=== PATIENT | male | born 2000 | race Caucasian/White ===

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

== ENCOUNTER → 2021-05-26 | Outpatient (CLI) | payer BC, OTHER ==
[2021-05-26 16:14] LABS: BASOPHILS ABSOLUTE AUTO 0.03 K/mm3 (0.00-0.23); BASOPHILS PERCENT AUTO 0 % (0-2); EOSINOPHILS PERCENT AUTO 3 % (0-6); Hematocrit 41.5 % (37.0-53.0); Hemoglobin 14.4 g/dL (13.5-17.5); IMMATURE GRAN ABSOLUTE AUTO 0.02 K/mm3 (0.00-0.10); IMMATURE GRAN PERCENT AUTO 0 % (0-1); LYMPHOCYTES ABSOLUTE AUTO 1.82 K/mm3 (0.84-5.20); LYMPHOCYTES PERCENT AUTO 25 % (21-46); MONOCYTES ABSOLUTE AUTO 0.52 K/mm3 (0.16-1.47); MONOCYTES PERCENT AUTO 7 % (4-13); Mean Corpuscular HGB Conc 34.7 g/dL (31.5-36.5); Mean Corpuscular Volume 87 fL (80-100); Mean Platelet Volume 9.4 fL (9.1-12.4); NEUTROPHILS ABSOLUTE AUTO 4.61 K/mm3 (1.96-9.15); NEUTROPHILS PERCENT AUTO 64 % (41-73); Platelet Count 343 K/mm3 (150-400); RDW Coefficient Variation 13.2 % (11.7-14.2); RDW Standard Deviation 41.1 fL (35.1-46.3)
[2021-05-26 16:25] LABS: Alanine Aminotransfer (ALT/SGP 60 U/L (12-78); Albumin, Blood 3.9 g/dL (3.4-5.0); Alk Phos 106 U/L (40-126); Anion Gap 9 mmol/L (6-16); Aspartate Aminotrans (AST/SGOT 25 U/L (12-37); Bilirubin, Total 0.8 mg/dL (0.1-1.0); Blood Urea Nitrogen 8 mg/dL (8-24); Bun/Creatinine Ratio 8.2 (12.0-20.0); CO2, Blood 29 mmol/L (21-32); Calcium, Blood 9.7 mg/dL (8.5-10.1); Chloride, Blood 104 mmol/L (98-108); Creatinine, Blood 0.98 mg/dL (0.60-1.20); Globulin, Blood 3.9 g/dL (2.2-4.0); Glomerular Filtration Rate >60 (60-); Glucose, Blood 83 mg/dL (70-99); Potassium, Blood 3.8 mmol/L (3.5-5.5); Sodium, Blood 142 mmol/L (136-145); Total Protein, Blood 7.8 g/dL (6.4-8.2)
== END | disposition home or self-care (01) ==
LOC: LAB SHORT 16:08
PROVIDERS: Physician Assistant Surgical
DX: R07.9 Chest pain, unspecified (principal)
CPT/HCPCS: 80053; 85025

== ENCOUNTER → 2021-09-19 | Outpatient (CLI) | payer BC, OTHER ==
[2021-09-19 17:08] LABS: BASOPHILS ABSOLUTE AUTO 0.04 K/mm3 (0.00-0.23); BASOPHILS PERCENT AUTO 1 % (0-2); EOSINOPHILS ABSOLUTE AUTO 0.29 K/mm3 (0.00-0.68); EOSINOPHILS PERCENT AUTO 3 % (0-6); Hematocrit 42.4 % (37.0-53.0); Hemoglobin 14.5 g/dL (13.5-17.5); IMMATURE GRAN ABSOLUTE AUTO 0.03 K/mm3 (0.00-0.10); IMMATURE GRAN PERCENT AUTO 0 % (0-1); LYMPHOCYTES ABSOLUTE AUTO 1.62 K/mm3 (0.84-5.20); LYMPHOCYTES PERCENT AUTO 19 % (21-46); MONOCYTES ABSOLUTE AUTO 0.51 K/mm3 (0.16-1.47); MONOCYTES PERCENT AUTO 6 % (4-13); Mean Corpuscular HGB 29.7 pg (26.0-34.0); Mean Corpuscular HGB Conc 34.2 g/dL (31.5-36.5); Mean Corpuscular Volume 87 fL (80-100); Mean Platelet Volume 9.6 fL (9.1-12.4); NEUTROPHILS ABSOLUTE AUTO 5.97 K/mm3 (1.96-9.15); NEUTROPHILS PERCENT AUTO 71 % (41-73); Platelet Count 378 K/mm3 (150-400); RDW Coefficient Variation 12.4 % (11.7-14.2); RDW Standard Deviation 39.1 fL (35.1-46.3); Red Blood Cell Count 4.89 M/mm3 (4.30-5.90); White Blood Cell Count 8.46 K/mm3 (4.00-11.30)
== END ==
LOC: LAB SHORT 17:03
PROVIDERS: Physician Assistant
DX: R59.0 Localized enlarged lymph nodes (principal)
CPT/HCPCS: 85025

== ENCOUNTER 2021-10-26 12:11 | Day surgery (SDC) | payer BC, OTHER ==
[~2021-10-26] VITALS: Ht 175.3 cm; Wt 95.9 kg
--- NOTE | 2021-10-26 13:34 | NUR ---
10/26/21 1334 [address] 50 MLS NORMAL SALINE MIXED WITH EPI 0.25 ML PER ORDER TO MAKE EPI 1:200,000 FOR INJECTION AT OPSITE BY DR GAMA FOR HOMEOSTASIS. 2 MLS INJECTED.
--- NOTE | 2021-10-26 15:21 | NUR ---
10/26/21 1521 MILENA GUZMAN TEGREDERM WITH 2X2 GAUZE APPLIED TO INCISION PER DR BELLO VERBAL ORDERS. 3 EXTRA SENT HOME FOR SHOWERING TO KEEP WOUND DRY FOR 3 DAYS.
== END 2021-10-26 15:18 | disposition home or self-care (01) ==
LOC: ORSCSDS 12:11
PROVIDERS: Otolaryngology
PROC: 07B10ZX Excision of Right Neck Lymphatic, Open Approach, Diagnostic (ICD-10-PCS; principal; 2021-10-26 13:30)
DX: C81.01 Nodular lymphocyte predominant Hodgkin lymphoma, lymph nodes of head, face, and neck (principal); J45.909 Unspecified asthma, uncomplicated; F17.290 Nicotine dependence, other tobacco product, uncomplicated
CPT/HCPCS: 87071; 87075; 87205; 88305; 88341; 88342; A9270; J0171; J1100; J2250; J2405; J2704; J3010

== ENCOUNTER 2021-11-09 06:13 | Day surgery (SDC) | payer BC, OTHER ==
[~2021-11-09] VITALS: Ht 177.8 cm; Wt 96.0 kg
[~2021-11-09 06:13] MED LIST changes: +PROM25 PO
[2021-11-09] MEDS ORDERED: TRAM50 PO (06:34)
--- NOTE | 2021-11-09 06:50 | NUR ---
Ambulatory in Day Surgery. Surgical site prepped with 2% Chlorhexidine cloth wipe. History, Chart, Medications and Allergies reviewed before start of procedure. Patient reports completing Chlorhexadine shower X2 prior to admission to hospital. Patient States Post-Procedure ride home has been arranged. Pre-Op teaching done. Pt verbalizes understanding. Patient confirms NPO status and agrees with scheduled surgery. Lungs clear T/O to Auscultation. History, Chart, Medications and Allergies reviewed before start of procedure.
--- NOTE | 2021-11-09 10:13 | NUR ---
Patient up to Ambulate independently. Gait steady. Discharge instructions reviewed with patient AND PT'S MOTHER. Patient verbalizes understanding. Copy given to patient to take home. Discharged via wheelchair to private car for ride home.
== END 2021-11-09 23:21 | disposition home or self-care (01) ==
LOC: ORSCMMR 06:13 → ORD 07:30 → ORSCMMR 07:30
PROVIDERS: Surgery
PROC: 05HM33Z Insertion of Infusion Device into Right Internal Jugular Vein, Percutaneous Approach (ICD-10-PCS; principal; 2021-11-09 07:30)
PROC: B543ZZA Ultrasonography of Right Jugular Veins, Guidance (ICD-10-PCS; principal; 2021-11-09 07:30)
DX: C81.18 Nodular sclerosis Hodgkin lymphoma, lymph nodes of multiple sites (principal); F17.210 Nicotine dependence, cigarettes, uncomplicated; J45.909 Unspecified asthma, uncomplicated; K21.9 Gastro-esophageal reflux disease without esophagitis; Z79.899 Other long term (current) drug therapy
CPT/HCPCS: 77001; C1788; J0690; J1100; J1642; J1885; J2250; J2370; J2405; J2704; J3010; J7120

== ENCOUNTER 2021-11-26 08:14 | Inpatient (IN) | payer BC, OTHER ==
[~2021-11-26] VITALS: Ht 177.8 cm; Wt 93.3 kg
[2021-11-26 09:07] LABS: Hematocrit 38.2 % (37.0-53.0); Hemoglobin 12.7 g/dL (13.5-17.5); Mean Corpuscular HGB 28.5 pg (26.0-34.0); Mean Corpuscular HGB Conc 33.2 g/dL (31.5-36.5); Mean Corpuscular Volume 86 fL (80-100); Mean Platelet Volume 9.3 fL (9.1-12.4); Platelet Count 463 K/mm3 (150-400); RDW Coefficient Variation 11.9 % (11.7-14.2); RDW Standard Deviation 37.1 fL (35.1-46.3); Red Blood Cell Count 4.45 M/mm3 (4.30-5.90)
[2021-11-26] MEDS ORDERED: VINBLASTINE (09:11)
[2021-11-26] MEDS ORDERED: DOXORUBICIN2 MG/1 ML (09:11)
[2021-11-26] MEDS ORDERED: METO10SY (09:12)
[2021-11-26] MEDS ORDERED: DACARBAZINE (09:12)
[2021-11-26] MEDS ORDERED: ADCETRIS50 MG (09:12)
[2021-11-26] MEDS ORDERED: NEULASTA6 MG/0.6 M (09:12)
[2021-11-26 09:31] LABS: Alanine Aminotransfer (ALT/SGP 122 U/L (12-78); Albumin, Blood 3.2 g/dL (3.4-5.0); Albumin/Globulin Ratio 0.7 (0.8-1.8); Alk Phos 145 U/L (50-136); Anion Gap 6 mmol/L (6-16); Aspartate Aminotrans (AST/SGOT 27 U/L (12-37); BAND PERCENT MAN 21 % (0-8); BASOPHILS ABSOLUTE MAN 0.21 K/mm3 (0.00-0.23); BASOPHILS PERCENT MAN 1 % (0-2); Bilirubin, Total 0.1 mg/dL (0.1-1.0); Blood Urea Nitrogen 13 mg/dL (8-24); Bun/Creatinine Ratio 13.2 (12.0-20.0); CO2, Blood 25 mmol/L (21-32); Chloride, Blood 106 mmol/L (98-108); Creatinine, Blood 0.99 mg/dL (0.60-1.20); EOSINOPHILS ABSOLUTE MAN 0.21 K/mm3 (0.00-0.68); EOSINOPHILS PERCENT MAN 1 % (0-6); Globulin, Blood 4.5 g/dL (2.2-4.0); Glomerular Filtration Rate >60 (60-); Glucose, Blood 109 mg/dL (70-99); LYMPHOCYTES ABSOLUTE MAN 1.73 K/mm3 (0.84-5.20); LYMPHOCYTES PERCENT MAN 8 % (21-46); METAMYELOCYTE ABSOLUTE MAN 1.51 K/mm3 (0.00-0.00); METAMYELOCYTE PERCENT MAN 7 % (0-0); MONOCYTES ABSOLUTE MAN 2.38 K/mm3 (0.16-1.47); MONOCYTES PERCENT MAN 11 % (4-13); MYELOCYTE ABSOLUTE MAN 0.65 K/mm3 (0.00-0.00); MYELOCYTE PERCENT MAN 3 % (0-0); Magnesium, Blood 2.1 mg/dL (1.6-2.4); NEUTROPHILS ABSOLUTE MAN 14.97 K/mm3 (1.96-9.15); Potassium, Blood 3.9 mmol/L (3.5-5.5); SEG NEUTROPHILS PERCENT MAN 48 % (41-73); Sodium, Blood 137 mmol/L (136-145); TOTAL CELLS COUNTED 100; Total Protein, Blood 7.7 g/dL (6.4-8.2)
[2021-11-26] MEDS ORDERED: OXYC5 PO (09:35)
[2021-11-26] MEDS ORDERED: OMEP20ER PO (09:35)
[2021-11-26] MEDS ORDERED: REGLAN1011 PO (09:36)
[2021-11-26] MEDS ORDERED: TRAM50 PO (09:36)
[2021-11-26] MEDS ORDERED: HYDROCODONE-AC1 EA17 PO (09:36)
[2021-11-26] MEDS ORDERED: ALLO300 PO (09:36)
[2021-11-26] MEDS ORDERED: Phenergan25 M1 PO (09:37)
[2021-11-26 13:39] LABS: Automated CSF WBC Count 0.067 K/mm3 (0-5); WBC Count, CSF 67 /mm3 (0-5)
[2021-11-26 13:42] LABS: Automated CSF WBC Count 0.063 K/mm3 (0-5); WBC Count, CSF 63 /mm3 (0-5)
[2021-11-26 14:29] LABS: Glucose, CSF 64 mg/dL (40-70)
[2021-11-26 15:27] LABS: Color, CSF No Color (No Color); RBC Count, CSF 3 /mm3 (0-0)
[2021-11-26 15:33] LABS: Appearance, CSF Clear (Clear)
[2021-11-26 15:42] LABS: Cryptococcus Neoformans/Gattii Not Detected (NOT DETECT); Enterovirus Not Detected (NOT DETECT); Escherichia Coli K1 Not Detected (NOT DETECT); Haemophilus Influenza Not Detected (NOT DETECT); Herpes Simplex Virus 1 Not Detected (NOT DETECT); Herpes Simplex Virus 2 Not Detected (NOT DETECT); Human Herpesvirus 6 Not Detected (NOT DETECT); Human Parechovirus Not Detected (NOT DETECT); Listeria Monocytogenes Not Detected (NOT DETECT); Neisseria Meningitidis Not Detected (NOT DETECT); Streptococcus Agalactiae Not Detected (NOT DETECT); Streptococcus Pneumoniae Not Detected (NOT DETECT); Varicella Zoster Virus Not Detected (NOT DETECT)
[2021-11-26 16:11] LABS: RBC Count, CSF 70 /mm3 (0-0)
[2021-11-26 16:12] LABS: Appearance, CSF Clear (Clear); Color, CSF No Color (No Color)
[2021-11-26 18:07] LABS: Eosinophils, CSF 1 % (0-0); Lymphocytes, CSF 59 % (40-80); Monocytes, CSF 1 % (15-45); Neutrophils, CSF 39 % (0-6)
[2021-11-26 18:09] LABS: Eosinophils, CSF 2 % (0-0); Lymphocytes, CSF 71 % (40-80); Monocytes, CSF 2 % (15-45); Neutrophils, CSF 25 % (0-6)
--- NOTE | 2021-11-26 18:48 | NUR ---
DAY SHIFT SUMMARY PT ARRIVED TO MED FLOOR JUST BEFORE 1800 FROM ED. ADMITTED WITH SEVERE HEADACHE, POSITIVE FOR MENENGITIS. ORIENTED TO ROOM/SURROUNDING AREA/CALL LIGHT. CALL LIGHT WITHIN REACH AND ABLE TO CALL APPROPRIATELY. GIRLFRIEND AND MOM AT BEDSIDE. INITIAL ADMIT ASSESSMENT COMPLETED, HOME MED LIST COMPLETED.
--- NOTE | 2021-11-27 03:03 | NUR ---
NAUMKEAG OPERATOR SUMMARY INTERMITTENT PAIN OF HEAD AND BACK. RECEIVED DILAUDID WHICH WAS EFFECTIVE BUT DID NOT LAST LONG. SEE MAR FOR DETAILS. IV ZOVIRAX AMINISTERED. ORIENTED X 4. CALL LIGHT IN REACH. CURRENTLY RESTING QUIETLY. WILL CONTINUE TO MONITOR
[2021-11-27 05:33] LABS: Hemoglobin 11.7 g/dL (13.5-17.5); Mean Corpuscular HGB 28.6 pg (26.0-34.0); Mean Corpuscular HGB Conc 33.4 g/dL (31.5-36.5); Mean Corpuscular Volume 86 fL (80-100); Mean Platelet Volume 9.4 fL (9.1-12.4); Platelet Count 419 K/mm3 (150-400); RDW Standard Deviation 36.6 fL (35.1-46.3); Red Blood Cell Count 4.09 M/mm3 (4.30-5.90); White Blood Cell Count 18.53 K/mm3 (4.00-11.30)
[2021-11-27 05:55] LABS: Alanine Aminotransfer (ALT/SGP 86 U/L (12-78); Albumin, Blood 2.8 g/dL (3.4-5.0); Albumin/Globulin Ratio 0.7 (0.8-1.8); Alk Phos 127 U/L (50-136); Anion Gap 5 mmol/L (6-16); Aspartate Aminotrans (AST/SGOT 19 U/L (12-37); Bilirubin, Total 0.1 mg/dL (0.1-1.0); Blood Urea Nitrogen 11 mg/dL (8-24); Bun/Creatinine Ratio 11.1 (12.0-20.0); CO2, Blood 27 mmol/L (21-32); Calcium, Blood 8.6 mg/dL (8.5-10.1); Chloride, Blood 107 mmol/L (98-108); Creatinine, Blood 0.99 mg/dL (0.60-1.20); Glomerular Filtration Rate >60 (60-); Glucose, Blood 114 mg/dL (70-99); Potassium, Blood 3.8 mmol/L (3.5-5.5); Sodium, Blood 139 mmol/L (136-145); Total Protein, Blood 6.8 g/dL (6.4-8.2)
[2021-11-27 06:06] LABS: BAND PERCENT MAN 16 % (0-8); BASOPHILS PERCENT MAN 0 % (0-2); EOSINOPHILS PERCENT MAN 0 % (0-6); LYMPHOCYTES ABSOLUTE MAN 3.15 K/mm3 (0.84-5.20); LYMPHOCYTES PERCENT MAN 17 % (21-46); METAMYELOCYTE ABSOLUTE MAN 0.55 K/mm3 (0.00-0.00); METAMYELOCYTE PERCENT MAN 3 % (0-0); MONOCYTES ABSOLUTE MAN 0.92 K/mm3 (0.16-1.47); MONOCYTES PERCENT MAN 5 % (4-13); MYELOCYTE ABSOLUTE MAN 0.74 K/mm3 (0.00-0.00); MYELOCYTE PERCENT MAN 4 % (0-0); NEUTROPHILS ABSOLUTE MAN 13.15 K/mm3 (1.96-9.15); SEG NEUTROPHILS PERCENT MAN 55 % (41-73); TOTAL CELLS COUNTED 100
--- NOTE | 2021-11-27 16:17 | NUR ---
DAY SHIFT SUMMARY 21 YR OLD MALE PT ADMITTED WITH SEVERE HEADACHE. TEST FOR MENENGITIS CURRENTLY BEING PERFORMED. MRI OF HEAD DONE TODAY. C/O OF SEVERE PAIN WITH HEADACHE WITH NAUSEA, MEDICATED PER EMAR. CONTINUIOUS FLUIDS RUNNING. PT ON RA. FAMILY AT BEDSIDE. CALL LIGHT WITHIN REACH. PT ABLE TO CALL APPROPRIATELY.
--- NOTE | 2021-11-27 20:25 | NUR ---
PAIN - HEADACHE AND BACK CONTINUES. HS MEDS (TYLENOL SCHEDULED) GIVEN. WILL CONT TO MONITOR AND TREAT PER MAR - SEE MAR FOR DETAILS. IVF INFUSING. MOTHER AT BEDSIDE. CALL LIGHT INE REACH
--- NOTE | 2021-11-28 01:13 | NUR ---
GROOVER AND TURNER DOCUMENTAION REVIEWED, I AGREE WITH DOCUMENTATION, ETC
--- NOTE | 2021-11-28 04:37 | NUR ---
MANAGER EQUITY SUMMARY INTERMITTENT PAIN OF HEADACHE AND BACK CONTINUES - HAS BEEN RECEIVING FENTANYL IV ABOUT EVERY 3 HRS FOR SAID PAIN. SEE MAR FOR DETAILS. IVF OF NS INFUSING AT 75 ML/HR FOR HYDRATION HE OCCASIONALLY HAS NAUSEA. IV ANTIVIRAL AND ANTIBIOTICS INFUSING ORDERED. CALL LIGHT IN REACH. RESTING QUIETLY AT THIS TIME
[2021-11-28 08:38] LABS: Hematocrit 38.6 % (37.0-53.0); Hemoglobin 12.8 g/dL (13.5-17.5); Mean Corpuscular HGB 28.6 pg (26.0-34.0); Mean Corpuscular HGB Conc 33.2 g/dL (31.5-36.5); Mean Corpuscular Volume 86 fL (80-100); Mean Platelet Volume 9.4 fL (9.1-12.4); Platelet Count 376 K/mm3 (150-400); RDW Standard Deviation 37.3 fL (35.1-46.3); Red Blood Cell Count 4.47 M/mm3 (4.30-5.90); White Blood Cell Count 13.84 K/mm3 (4.00-11.30)
[2021-11-28 09:16] LABS: BAND PERCENT MAN 7 % (0-8); BASOPHILS PERCENT MAN 0 % (0-2); EOSINOPHILS ABSOLUTE MAN 0.13 K/mm3 (0.00-0.68); EOSINOPHILS PERCENT MAN 1 % (0-6); LYMPHOCYTES ABSOLUTE MAN 1.38 K/mm3 (0.84-5.20); LYMPHOCYTES PERCENT MAN 10 % (21-46); METAMYELOCYTE ABSOLUTE MAN 0.27 K/mm3 (0.00-0.00); METAMYELOCYTE PERCENT MAN 2 % (0-0); MONOCYTES ABSOLUTE MAN 0.27 K/mm3 (0.16-1.47); MONOCYTES PERCENT MAN 2 % (4-13); MYELOCYTE ABSOLUTE MAN 0.55 K/mm3 (0.00-0.00); MYELOCYTE PERCENT MAN 4 % (0-0); NEUTROPHILS ABSOLUTE MAN 11.21 K/mm3 (1.96-9.15); SEG NEUTROPHILS PERCENT MAN 74 % (41-73); TOTAL CELLS COUNTED 100
--- NOTE | 2021-11-28 18:33 | NUR ---
SHIFT SUMMARY PT'S MAIN CONCERN HAS BEEN PAIN CONTROL THIS SHIFT. TRIALED MANY FORMS OF PAIN RELIEF WHICH DID NOT SEEM TO WORK. 2 MG DILAUDID HAS BEEN FOUND TO BE MOST SUCCESSFUL SO FAR AND PAIN HAS BEEN REDUCED TO 5/10 FOR 10 WHILE USING IT. SEE EMR. PT ALSO EXPERIENCES OCCASIONAL NAUSEA; TREATED PER EMR. PT DX WITH HODGKIN LYMPHOMA AND ROUTINE CHEMO POSTPONED. MRI CAME BACK NEGATIVE. VSS.
--- NOTE | 2021-11-28 19:39 | NUR ---
PHYSICIAN COMMUNICATION CONTACTED INVESTMENT UNDERWRITER PHYSICIAN, DR TIWARI, TO NOTIFY HIM THAT THE PATIENT IS EXPERIENCING NAUSEA AND VOMITING AND IV ZOFRAN WAS INEFFECTIVE. DR TIWARI ORDERED REGLAN 10MG IV EVERY FOUR HOURS NEEDED.
[2021-11-29 04:40] LABS: BASOPHILS ABSOLUTE AUTO 0.13 K/mm3 (0.00-0.23); BASOPHILS PERCENT AUTO 1 % (0-2); EOSINOPHILS ABSOLUTE AUTO 0.06 K/mm3 (0.00-0.68); EOSINOPHILS PERCENT AUTO 0 % (0-6); Hematocrit 35.3 % (37.0-53.0); IMMATURE GRAN ABSOLUTE AUTO 1.05 K/mm3 (0.00-0.10); IMMATURE GRAN PERCENT AUTO 7 % (0-1); LYMPHOCYTES ABSOLUTE AUTO 2.44 K/mm3 (0.84-5.20); LYMPHOCYTES PERCENT AUTO 16 % (21-46); MONOCYTES ABSOLUTE AUTO 0.95 K/mm3 (0.16-1.47); MONOCYTES PERCENT AUTO 6 % (4-13); Mean Corpuscular HGB 28.7 pg (26.0-34.0); Mean Corpuscular Volume 84 fL (80-100); Mean Platelet Volume 9.3 fL (9.1-12.4); NEUTROPHILS ABSOLUTE AUTO 10.32 K/mm3 (1.96-9.15); NEUTROPHILS PERCENT AUTO 69 % (41-73); Platelet Count 356 K/mm3 (150-400); RDW Coefficient Variation 11.9 % (11.7-14.2); Red Blood Cell Count 4.18 M/mm3 (4.30-5.90); White Blood Cell Count 14.95 K/mm3 (4.00-11.30)
--- NOTE | 2021-11-29 06:40 | NUR ---
SHIFT SUMMARY PATIENT ALERT AND ORIENTED. MEDICATED PER EMAR FOR PAIN AND NAUSEA. NO COMPLAINTS OF SHORTNESS OF BREATH. NO ACUTE ISSUES NOTED OVERNIGHT. CALL LIGHT WITHIN REACH. REPORT GIVEN TO ONCOMING RN.
--- NOTE | 2021-11-29 19:31 | NUR ---
SHIFT SUMMARY- PT A/OX4. PT CONTINUES TO C/O HEAD PAIN 02/26 BUT DOES IMPROVE AFTER DILAUDID TO A 09/29 BUT REMAINED PERSISTANT T/O THE DAY. OCCASIONAL NAUSEA ASSOCIATED, NO EMESIS. LS CLEAR, ON RA. PT ISMAEL INTO 40'S AT TIMES. PT ATTEMPTED TO EAT AT TIMES BUT ONLY ABLE TO GET FEW BITES IN THROUGH OUT THE DAY. NO OTHER ACUTE CHANGES THIS SHIFT.
--- NOTE | 2021-11-30 04:03 | NUR ---
SIGNAL TIMER SUMMARY HAS BEEN RESTING QUIETLY WITH OCCASIONAL INTERRUPTIONS WITH EPISODES OF PAIN AND NAUSEA - SEE MAR FOR DETAILS OF MEDS GIVEN. IVF OF NS CONTINUES. CALL LIGHT IN REACH. CURRENTLY RESTING QUIETLY
[2021-11-30 05:11] LABS: BASOPHILS ABSOLUTE AUTO 0.11 K/mm3 (0.00-0.23); BASOPHILS PERCENT AUTO 1 % (0-2); EOSINOPHILS ABSOLUTE AUTO 0.05 K/mm3 (0.00-0.68); EOSINOPHILS PERCENT AUTO 0 % (0-6); Hematocrit 37.2 % (37.0-53.0); Hemoglobin 12.5 g/dL (13.5-17.5); IMMATURE GRAN ABSOLUTE AUTO 0.49 K/mm3 (0.00-0.10); IMMATURE GRAN PERCENT AUTO 4 % (0-1); LYMPHOCYTES ABSOLUTE AUTO 2.31 K/mm3 (0.84-5.20); LYMPHOCYTES PERCENT AUTO 17 % (21-46); MONOCYTES PERCENT AUTO 7 % (4-13); Mean Corpuscular HGB 28.3 pg (26.0-34.0); Mean Corpuscular HGB Conc 33.6 g/dL (31.5-36.5); Mean Corpuscular Volume 84 fL (80-100); Mean Platelet Volume 9.4 fL (9.1-12.4); NEUTROPHILS PERCENT AUTO 71 % (41-73); Platelet Count 332 K/mm3 (150-400); RDW Coefficient Variation 11.7 % (11.7-14.2); RDW Standard Deviation 35.5 fL (35.1-46.3); Red Blood Cell Count 4.42 M/mm3 (4.30-5.90); White Blood Cell Count 13.46 K/mm3 (4.00-11.30)
--- NOTE | 2021-11-30 18:31 | NUR ---
SHIFT SUMMARY- PT A/OX4, PT MEDICATED X4 WITH DILAUDID AND X2 WITH TORADOL FOR HEAD PAIN. PT DID WELL THIS MORNING BUT THIS AFTERNOON NEEDING DILAUDID APROX EVERY 2 HOURS. PT SLEPT OFF/ON T/O THE DAY AFTER DOSES OF DILAUDID. PT CONTINUES WITH POOR ORAL INTAKE, NAUSEA ONLY THIS EVENING AND MEDICATED WITH ZOFRAN. NO BM THIS SHIFT, BOWEL MEDS STARTED. MOLDER MACHINE TENDER IN TO SEE PT AND MOTHER. PT REMAINS ON IVF. LS CLEAR, ON RA. HRR BUT ISMAEL. INDEP UP TO BATHROOM. NO OTHER ACUTE CHANGES THIS SHIFT.
--- NOTE | 2021-12-01 04:13 | NUR ---
SHIFT SUMMARY: Patient had trouble sleeping for the first part of the shift, continues to be A&O, VSS on RA, difficulty noted with pain and nausea managment, PRN medication administered, mom remains at the bedise, patient up independently in room, implanted port to chest is not accessed, continues to infuse IV fluids to PIV, PO intake is very poor, enocouraged PO intake as tolerable, education provided about medications, plan of care, and pain control
[2021-12-01 05:55] LABS: BASOPHILS PERCENT AUTO 1 % (0-2); EOSINOPHILS ABSOLUTE AUTO 0.02 K/mm3 (0.00-0.68); EOSINOPHILS PERCENT AUTO 0 % (0-6); Hematocrit 35.9 % (37.0-53.0); Hemoglobin 12.2 g/dL (13.5-17.5); IMMATURE GRAN ABSOLUTE AUTO 0.17 K/mm3 (0.00-0.10); IMMATURE GRAN PERCENT AUTO 1 % (0-1); LYMPHOCYTES ABSOLUTE AUTO 1.46 K/mm3 (0.84-5.20); LYMPHOCYTES PERCENT AUTO 11 % (21-46); MONOCYTES ABSOLUTE AUTO 0.48 K/mm3 (0.16-1.47); MONOCYTES PERCENT AUTO 4 % (4-13); Mean Corpuscular HGB 28.4 pg (26.0-34.0); Mean Corpuscular Volume 84 fL (80-100); Mean Platelet Volume 9.2 fL (9.1-12.4); NEUTROPHILS ABSOLUTE AUTO 10.89 K/mm3 (1.96-9.15); NEUTROPHILS PERCENT AUTO 83 % (41-73); Platelet Count 302 K/mm3 (150-400); RDW Coefficient Variation 11.8 % (11.7-14.2); RDW Standard Deviation 34.6 fL (35.1-46.3); White Blood Cell Count 13.12 K/mm3 (4.00-11.30)
--- NOTE | 2021-12-01 18:19 | NUR ---
SHIFT SUMMARY PT EATING BREAKFAST THIS MORNING AND TOLERATED WITH NO INCREASE IN NAUSEA. ALSO ATE LUNCH. MEDICATED WITH ORAL MEDS AT NOON TIME AND PAIN STARTED TO IMPROVED BUT WORSENED SIGNIFICANTLY NEEDING SUPPLEMENTAL IV PAIN MEDS. NAPPED AND FELT BETTER. LATER WENT TO RESTROOM AND STRAINED IN ATTEMPT TO HAVE A BM CAUSING INCREASE IN NAUSEA AND HEADACHE AGAIN. MOTHER AT BEDSIDE MOST OF SHIFT.
[2021-12-02 05:14] LABS: BASOPHILS ABSOLUTE AUTO 0.09 K/mm3 (0.00-0.23); BASOPHILS PERCENT AUTO 1 % (0-2); EOSINOPHILS ABSOLUTE AUTO 0.02 K/mm3 (0.00-0.68); EOSINOPHILS PERCENT AUTO 0 % (0-6); Hematocrit 35.8 % (37.0-53.0); Hemoglobin 12.4 g/dL (13.5-17.5); IMMATURE GRAN ABSOLUTE AUTO 0.12 K/mm3 (0.00-0.10); IMMATURE GRAN PERCENT AUTO 1 % (0-1); LYMPHOCYTES ABSOLUTE AUTO 1.83 K/mm3 (0.84-5.20); LYMPHOCYTES PERCENT AUTO 16 % (21-46); MONOCYTES ABSOLUTE AUTO 0.63 K/mm3 (0.16-1.47); MONOCYTES PERCENT AUTO 6 % (4-13); Mean Corpuscular HGB 28.6 pg (26.0-34.0); Mean Corpuscular HGB Conc 34.6 g/dL (31.5-36.5); Mean Corpuscular Volume 83 fL (80-100); Mean Platelet Volume 9.7 fL (9.1-12.4); NEUTROPHILS ABSOLUTE AUTO 8.78 K/mm3 (1.96-9.15); NEUTROPHILS PERCENT AUTO 77 % (41-73); Platelet Count 317 K/mm3 (150-400); RDW Coefficient Variation 11.8 % (11.7-14.2); RDW Standard Deviation 34.5 fL (35.1-46.3); Red Blood Cell Count 4.34 M/mm3 (4.30-5.90); White Blood Cell Count 11.47 K/mm3 (4.00-11.30)
--- NOTE | 2021-12-02 05:58 | NUR ---
SHIFT SUMMARY PT HAD A BETTER EVENING THIS EVENING. INITIALLY REQUIRING IV DILAUDID AFTER PO DOSE TO MANAGE PAIN BUT HAS NOT NEEDED ANY PAIN MEDICATION SINCE APPROXIMATELY 2300. PT ALSO HAD ONE EPISODE OF NAUSEA RECEIVING A DOSE OF IV REGLAN. PT REPORTS THAT IT HAS BEEN AT LEAST 6 DAYS SINCE HE HAS HAD A BOWEL MOVEMENT. SUPPOSITORY GIVEN THIS EVENING WITH ONLY A VERY SMALL PEBBLE LIKE BOWEL MOVEMENT REPORTED BY PATIENT. OTHERWISE NO ACUTE CHANGES THIS EVENING. PT HOPEFUL TO D/C TO HOME TODAY.
[2021-12-02 06:03] LABS: Alanine Aminotransfer (ALT/SGP 56 U/L (12-78); Albumin, Blood 3.3 g/dL (3.4-5.0); Albumin/Globulin Ratio 0.8 (0.8-1.8); Alk Phos 108 U/L (50-136); Anion Gap 8 mmol/L (6-16); Aspartate Aminotrans (AST/SGOT 19 U/L (12-37); Bilirubin, Total 0.5 mg/dL (0.1-1.0); Blood Urea Nitrogen 10 mg/dL (8-24); Bun/Creatinine Ratio 10.2 (12.0-20.0); CO2, Blood 28 mmol/L (21-32); Calcium, Blood 9.1 mg/dL (8.5-10.1); Chloride, Blood 102 mmol/L (98-108); Creatinine, Blood 0.98 mg/dL (0.60-1.20); Glomerular Filtration Rate >60 (60-); Glucose, Blood 93 mg/dL (70-99); Potassium, Blood 3.7 mmol/L (3.5-5.5); Sodium, Blood 138 mmol/L (136-145); Total Protein, Blood 7.3 g/dL (6.4-8.2)
[2021-12-02] MEDS ORDERED: MIRALAX17 GM PO (17:26)
[2021-12-02] MEDS ORDERED: ACYC800 PO (17:26)
--- NOTE | 2021-12-02 17:30 | NUR ---
DISCHARGE NOTE D/C HOME ORDERS RECIEVED AND REVIEWED. DISCUSSED D/C PLANS AND EDUCATION WITH PT AND HIS MOTHER AND GIRLFRIEND. IV REMOVED INTACT, MEDS SENT TO PT'S PHARMACY OF CHOICE. PT VERBALIZED UNDERSTANDING OF D/C PLAN. PT DISCHARDED HOME ESCORTED OUT VIA W/C AND TRANSPORTED HOME VIA PRIVATE VEHCILE.
== END 2021-12-02 17:46 | disposition home or self-care (01) | DRG 98 ==
LOC: ER 08:14 → MEDS 16:46
PROVIDERS: Internal Medicine; Physician Assistant; ADMIT Internal Medicine
DX: G03.9 Meningitis, unspecified (principal); C81.10 Nodular sclerosis Hodgkin lymphoma, unspecified site; D64.9 Anemia, unspecified; J45.909 Unspecified asthma, uncomplicated
CPT/HCPCS: 36415; 62270; 70450; 70553; 71045; 80053; 82945; 83605; 83735; 84145; 84157; 84484; 85025; 85651; 86140; 87040; 87070; 87205; 87483; 88108; 89051; 93005; 93010; 96365; 96367; 96375; 96376; 99285-25; A9270; A9579; J0133; J0696; J1170; J1200; J1650; J1885; J2405; J2765; J3010; J7030; J7050

== ENCOUNTER 2021-12-28 03:08 | Emergency (ER) | payer BC, OTHER ==
[~2021-12-28] VITALS: Ht 175.3 cm; Wt 88.5 kg
[~2021-12-28 03:08] MED LIST changes: +ACYC800 PO; +ADCETRIS50 MG; +ALLO300 PO; +DACARBAZINE; +DOXORUBICIN2 MG/1 ML; +HYDROCODONE-AC1 EA17 PO; +METO10SY; +MIRALAX17 GM PO; +NEULASTA6 MG/0.6 M; +OMEP20ER PO; +OXYC5 PO; +Phenergan25 M1 PO; +REGLAN1011 PO; +VINBLASTINE
[2021-12-28 04:01] LABS: BASOPHILS ABSOLUTE AUTO 0.03 K/mm3 (0.00-0.23); BASOPHILS PERCENT AUTO 2 % (0-2); EOSINOPHILS ABSOLUTE AUTO 0.02 K/mm3 (0.00-0.68); EOSINOPHILS PERCENT AUTO 1 % (0-6); Hematocrit 36.1 % (37.0-53.0); Hemoglobin 12.5 g/dL (13.5-17.5); Mean Corpuscular HGB 28.5 pg (26.0-34.0); Mean Corpuscular HGB Conc 34.6 g/dL (31.5-36.5); Mean Corpuscular Volume 82 fL (80-100); Mean Platelet Volume 9.8 fL (9.1-12.4); Platelet Count 307 K/mm3 (150-400); RDW Coefficient Variation 13.2 % (11.7-14.2); RDW Standard Deviation 38.4 fL (35.1-46.3); Red Blood Cell Count 4.38 M/mm3 (4.30-5.90); White Blood Cell Count 2.04 K/mm3 (4.00-11.30)
[2021-12-28 04:21] LABS: Alanine Aminotransfer (ALT/SGP 135 U/L (12-78); Albumin, Blood 3.9 g/dL (3.4-5.0); Albumin/Globulin Ratio 1.1 (0.8-1.8); Alk Phos 114 U/L (50-136); Anion Gap 7 mmol/L (6-16); Aspartate Aminotrans (AST/SGOT 61 U/L (12-37); Bilirubin, Total 0.4 mg/dL (0.1-1.0); Blood Urea Nitrogen 9 mg/dL (8-24); Bun/Creatinine Ratio 10.1 (12.0-20.0); CO2, Blood 28 mmol/L (21-32); Calcium, Blood 9.7 mg/dL (8.5-10.1); Chloride, Blood 101 mmol/L (98-108); Creatinine, Blood 0.89 mg/dL (0.60-1.20); Globulin, Blood 3.7 g/dL (2.2-4.0); Glomerular Filtration Rate >60 (60-); Glucose, Blood 116 mg/dL (70-99); Potassium, Blood 3.7 mmol/L (3.5-5.5); Sodium, Blood 136 mmol/L (136-145); Total Protein, Blood 7.6 g/dL (6.4-8.2)
[2021-12-28 04:38] LABS: IMMATURE GRAN ABSOLUTE AUTO 0.01 K/mm3 (0.00-0.10); IMMATURE GRAN PERCENT AUTO 1 % (0-1); LYMPHOCYTES ABSOLUTE AUTO 1.18 K/mm3 (0.84-5.20); LYMPHOCYTES PERCENT AUTO 58 % (21-46); MONOCYTES ABSOLUTE AUTO 0.29 K/mm3 (0.16-1.47); MONOCYTES PERCENT AUTO 14 % (4-13); NEUTROPHILS ABSOLUTE AUTO 0.51 K/mm3 (1.96-9.15); NEUTROPHILS PERCENT AUTO 25 % (41-73)
[2021-12-28 05:19] LABS: Source, Urine Clean Catch
[2021-12-28] MEDS ORDERED: Miralax17 GM PO (05:33)
[2021-12-28] MEDS ORDERED: Fleet Enema132 ML PR (05:33)
[2021-12-28 05:36] LABS: Appearance, Urine Clear (Clear); Bilirubin, Urine Neg (Neg); Blood, Urine Neg (Neg); Color, Urine Yellow (P-Yellow); Glucose Qualitative, Urine Neg (Neg); Ketones, Urine Neg (Neg); Leukocyte Esterase, Urine Neg (Neg); Nitrite, Urine Neg (Neg); Protein, Urine Neg (Neg); Urobilinogen, Urine NORM (Normal)
== END 2021-12-28 05:54 | disposition home or self-care (01) ==
LOC: ER 03:08
PROVIDERS: Emergency Medicine
DX: K59.00 Constipation, unspecified (principal); F17.200 Nicotine dependence, unspecified, uncomplicated; N28.1 Cyst of kidney, acquired; Z79.899 Other long term (current) drug therapy; Z91.030 Bee allergy status
CPT/HCPCS: 74177; 80053; 81003; 83605; 83690; 85025; A9270; J0500; J1885; J2270; J7030; Q9967

== ENCOUNTER 2022-01-17 13:28 | Day surgery (SDC) | payer BC, OTHER ==
[~2022-01-17 13:28] MED LIST changes: +Fleet Enema132 ML PR; +Miralax17 GM PO
== END 2022-01-17 23:15 | disposition home or self-care (01) ==
LOC: RAD 13:28
DX: C81.90 Hodgkin lymphoma, unspecified, unspecified site (principal)
CPT/HCPCS: 36598; Q9967

== ENCOUNTER 2022-01-17 15:05 | Day surgery (SDC) | payer BC, OTHER ==
--- NOTE | 2022-01-17 17:15 | NUR ---
PT CAME TO US, MEDIPORT NOT GIVING BACK BLOOD RETURN, CATHFLO ADMINISTERED.(2.1ML) WAITED 45 MIN, ANGEL BLOOD AND CATHFLO BACK, FLUSHED MEDIPORT. PT REQUESTING MARTINEZ OUT TILL TOMORROWS CHEMO
== END 2022-01-17 17:07 | disposition home or self-care (01) ==
LOC: ATC 15:05
DX: C81.18 Nodular sclerosis Hodgkin lymphoma, lymph nodes of multiple sites (principal); F17.210 Nicotine dependence, cigarettes, uncomplicated
CPT/HCPCS: 36593; J1642; J2997

== ENCOUNTER 2022-02-10 12:04 | Emergency (ER) | payer BC, OTHER ==
[~2022-02-10] VITALS: Ht 177.8 cm; Wt 846.0 kg
[2022-02-10 12:53] LABS: Hematocrit 32.2 % (37.0-53.0); Hemoglobin 11.1 g/dL (13.5-17.5); Mean Corpuscular HGB Conc 34.5 g/dL (31.5-36.5); Mean Corpuscular Volume 84 fL (80-100); Mean Platelet Volume 9.1 fL (9.1-12.4); Platelet Count 370 K/mm3 (150-400); RDW Coefficient Variation 15.6 % (11.7-14.2); RDW Standard Deviation 46.8 fL (35.1-46.3); Red Blood Cell Count 3.83 M/mm3 (4.30-5.90); White Blood Cell Count 6.08 K/mm3 (4.00-11.30)
[2022-02-10 13:11] LABS: Albumin, Blood 3.5 g/dL (3.4-5.0); Albumin/Globulin Ratio 0.9 (0.8-1.8); Bilirubin, Total 0.5 mg/dL (0.1-1.0); Bun/Creatinine Ratio 6.5 (12.0-20.0); Calcium, Blood 9.3 mg/dL (8.5-10.1); Creatinine, Blood 1.08 mg/dL (0.60-1.20); Globulin, Blood 3.9 g/dL (2.2-4.0); Potassium, Blood 3.8 mmol/L (3.5-5.5); Total Protein, Blood 7.4 g/dL (6.4-8.2)
[2022-02-10 13:17] LABS: BAND PERCENT MAN 19 % (0-8); BASOPHILS ABSOLUTE MAN 0.06 K/mm3 (0.00-0.23); BASOPHILS PERCENT MAN 1 % (0-2); EOSINOPHILS PERCENT MAN 0 % (0-6); LYMPHOCYTES ABSOLUTE MAN 1.21 K/mm3 (0.84-5.20); LYMPHOCYTES PERCENT MAN 20 % (21-46); METAMYELOCYTE ABSOLUTE MAN 0.48 K/mm3 (0.00-0.00); METAMYELOCYTE PERCENT MAN 8 % (0-0); MONOCYTES ABSOLUTE MAN 0.36 K/mm3 (0.16-1.47); MONOCYTES PERCENT MAN 6 % (4-13); MYELOCYTE ABSOLUTE MAN 0.12 K/mm3 (0.00-0.00); MYELOCYTE PERCENT MAN 2 % (0-0); NEUTROPHILS ABSOLUTE MAN 3.83 K/mm3 (1.96-9.15); SEG NEUTROPHILS PERCENT MAN 44 % (41-73); TOTAL CELLS COUNTED 100
[2022-02-10] MEDS ORDERED: ALBU90OI INH (15:11)
[2022-02-10 15:30] LABS: Influenza A, PCR NEGATIVE (NEGATIVE); Influenza B, PCR NEGATIVE (NEGATIVE); Resp Syncytial Virus, PCR NEGATIVE (NEGATIVE); SARS-Cov-2 (COVID-19) PCR, MMC NEGATIVE (NEGATIVE)
== END 2022-02-10 16:30 | disposition home or self-care (01) ==
LOC: ER 12:04
PROVIDERS: Emergency Medicine; Physician Assistant
DX: R06.02 Shortness of breath (principal); J45.909 Unspecified asthma, uncomplicated; F17.200 Nicotine dependence, unspecified, uncomplicated; Z20.822 Contact with and (suspected) exposure to COVID-19; Z79.899 Other long term (current) drug therapy; Z91.038 Other insect allergy status
CPT/HCPCS: 0241U; 36415; 71260; 80053; 84145; 85025; 93005; 93010; A9270; Q9967

== ENCOUNTER 2022-02-12 02:02 | Emergency (ER) | payer BC, OTHER ==
[~2022-02-12] VITALS: Ht 177.8 cm; Wt 83.9 kg
[2022-02-12] MEDS ORDERED: Norco 5-325 Ta1 EACH PO (04:00)
[2022-02-12] MEDS ORDERED: OLAN10 PO (04:00)
[2022-02-12] MEDS ORDERED: TRAM50 PO (04:00)
[2022-02-12] MEDS ORDERED: ONDA4 PO (04:01)
[2022-02-12] MEDS ORDERED: PHENY100ER PO (04:01)
[2022-02-12 04:34] LABS: Hematocrit 29.8 % (37.0-53.0); Hemoglobin 10.4 g/dL (13.5-17.5); Mean Corpuscular HGB 28.8 pg (26.0-34.0); Mean Corpuscular HGB Conc 34.9 g/dL (31.5-36.5); Mean Corpuscular Volume 83 fL (80-100); Mean Platelet Volume 9.4 fL (9.1-12.4); Platelet Count 290 K/mm3 (150-400); RDW Coefficient Variation 15.8 % (11.7-14.2); RDW Standard Deviation 46.5 fL (35.1-46.3); Red Blood Cell Count 3.61 M/mm3 (4.30-5.90); White Blood Cell Count 12.16 K/mm3 (4.00-11.30)
[2022-02-12 05:04] LABS: Albumin/Globulin Ratio 0.9 (0.8-1.8); Bilirubin, Total 0.4 mg/dL (0.1-1.0); Bun/Creatinine Ratio 10.8 (12.0-20.0); Calcium, Blood 8.7 mg/dL (8.5-10.1); Creatinine, Blood 1.11 mg/dL (0.60-1.20); Globulin, Blood 3.4 g/dL (2.2-4.0); Potassium, Blood 3.5 mmol/L (3.5-5.5); Total Protein, Blood 6.4 g/dL (6.4-8.2)
[2022-02-12 05:08] LABS: BAND PERCENT MAN 23 % (0-8); BASOPHILS ABSOLUTE MAN 0.12 K/mm3 (0.00-0.23); BASOPHILS PERCENT MAN 1 % (0-2); EOSINOPHILS PERCENT MAN 0 % (0-6); LYMPHOCYTES % ATYPICAL MANUAL 1 % (0-0); LYMPHOCYTES ABSOLUTE MAN 0.48 K/mm3 (0.84-5.20); LYMPHOCYTES PERCENT MAN 3 % (21-46); METAMYELOCYTE PERCENT MAN 5 % (0-0); MONOCYTES PERCENT MAN 5 % (4-13); MYELOCYTE ABSOLUTE MAN 0.36 K/mm3 (0.00-0.00); MYELOCYTE PERCENT MAN 3 % (0-0); NEUTROPHILS ABSOLUTE MAN 9.97 K/mm3 (1.96-9.15); SEG NEUTROPHILS PERCENT MAN 59 % (41-73); TOTAL CELLS COUNTED 100
[2022-02-12] MEDS ORDERED: LEVO750 PO (08:57)
== END 2022-02-12 12:25 | disposition home or self-care (01) ==
LOC: ER 02:02
PROVIDERS: Student in an Organized Health Care Education/Training Program
DX: J18.9 Pneumonia, unspecified organism (principal); J45.909 Unspecified asthma, uncomplicated; Z91.030 Bee allergy status; Z79.899 Other long term (current) drug therapy; Z85.72 Personal history of non-Hodgkin lymphomas
CPT/HCPCS: 36415; 71046; 80053; 83605; 84484; 85025; 85379; 93005; 93010; 94640; 94664; A9270; J0456; J1885; J2543; J7030; J7050

== ENCOUNTER → 2022-02-16 | Outpatient (CLI) | payer BC, OTHER ==
[~2022-02-16] MED LIST changes: +LEVO750 PO; +Norco 5-325 Ta1 EACH PO; +OLAN10 PO; +ONDA4 PO; +PHENY100ER PO
[2022-02-16 12:38] LABS: BASOPHILS ABSOLUTE AUTO 0.06 K/mm3 (0.00-0.23); BASOPHILS PERCENT AUTO 1 % (0-2); EOSINOPHILS ABSOLUTE AUTO 0.01 K/mm3 (0.00-0.68); EOSINOPHILS PERCENT AUTO 0 % (0-6); Hematocrit 25.2 % (37.0-53.0); Hemoglobin 8.6 g/dL (13.5-17.5); IMMATURE GRAN ABSOLUTE AUTO 0.18 K/mm3 (0.00-0.10); IMMATURE GRAN PERCENT AUTO 2 % (0-1); LYMPHOCYTES ABSOLUTE AUTO 0.87 K/mm3 (0.84-5.20); LYMPHOCYTES PERCENT AUTO 12 % (21-46); MONOCYTES ABSOLUTE AUTO 0.65 K/mm3 (0.16-1.47); MONOCYTES PERCENT AUTO 9 % (4-13); Mean Corpuscular HGB 28.8 pg (26.0-34.0); Mean Corpuscular HGB Conc 34.1 g/dL (31.5-36.5); Mean Corpuscular Volume 84 fL (80-100); Mean Platelet Volume 10.9 fL (9.1-12.4); NEUTROPHILS ABSOLUTE AUTO 5.64 K/mm3 (1.96-9.15); NEUTROPHILS PERCENT AUTO 76 % (41-73); Platelet Count 273 K/mm3 (150-400); RDW Coefficient Variation 16.1 % (11.7-14.2); RDW Standard Deviation 49.6 fL (35.1-46.3); Red Blood Cell Count 2.99 M/mm3 (4.30-5.90); White Blood Cell Count 7.41 K/mm3 (4.00-11.30)
[2022-02-16 12:48] LABS: Albumin, Blood 2.4 g/dL (3.4-5.0); Albumin/Globulin Ratio 0.7 (0.8-1.8); Bilirubin, Total 0.5 mg/dL (0.1-1.0); Bun/Creatinine Ratio 9.3 (12.0-20.0); Creatinine, Blood 0.75 mg/dL (0.60-1.20); Globulin, Blood 3.5 g/dL (2.2-4.0); Potassium, Blood 3.5 mmol/L (3.5-5.5); Total Protein, Blood 5.9 g/dL (6.4-8.2)
== END | disposition home or self-care (01) ==
LOC: LAB 11:21 → LAB SHORT 11:21
PROVIDERS: Nurse Practitioner
DX: C81.90 Hodgkin lymphoma, unspecified, unspecified site (principal)
CPT/HCPCS: 80053; 83880; 85025

== ENCOUNTER → 2022-04-10 | Outpatient (CLI) | payer BC, OTHER ==
[2022-04-10 11:51] LABS: BASOPHILS ABSOLUTE AUTO 0.05 K/mm3 (0.00-0.23); BASOPHILS PERCENT AUTO 1 % (0-2); EOSINOPHILS ABSOLUTE AUTO 0.01 K/mm3 (0.00-0.68); EOSINOPHILS PERCENT AUTO 0 % (0-6); Hemoglobin 11.2 g/dL (13.5-17.5); IMMATURE GRAN ABSOLUTE AUTO 0.21 K/mm3 (0.00-0.10); IMMATURE GRAN PERCENT AUTO 3 % (0-1); LYMPHOCYTES ABSOLUTE AUTO 2.49 K/mm3 (0.84-5.20); LYMPHOCYTES PERCENT AUTO 35 % (21-46); MONOCYTES ABSOLUTE AUTO 1.27 K/mm3 (0.16-1.47); MONOCYTES PERCENT AUTO 18 % (4-13); Mean Corpuscular HGB 30.3 pg (26.0-34.0); Mean Corpuscular HGB Conc 33.9 g/dL (31.5-36.5); Mean Corpuscular Volume 89 fL (80-100); Mean Platelet Volume 9.4 fL (9.1-12.4); NEUTROPHILS ABSOLUTE AUTO 3.11 K/mm3 (1.96-9.15); NEUTROPHILS PERCENT AUTO 44 % (41-73); Platelet Count 378 K/mm3 (150-400); RDW Coefficient Variation 15.8 % (11.7-14.2); RDW Standard Deviation 51.3 fL (35.1-46.3); White Blood Cell Count 7.14 K/mm3 (4.00-11.30)
[2022-04-10 11:57] LABS: Albumin, Blood 3.4 g/dL (3.4-5.0); Albumin/Globulin Ratio 1.1 (0.8-1.8); Bilirubin, Total 0.2 mg/dL (0.1-1.0); Bun/Creatinine Ratio 10.2 (12.0-20.0); Calcium, Blood 8.2 mg/dL (8.5-10.1); Creatinine, Blood 0.78 mg/dL (0.60-1.20); Globulin, Blood 3.1 g/dL (2.2-4.0); Potassium, Blood 3.8 mmol/L (3.5-5.5); Total Protein, Blood 6.5 g/dL (6.4-8.2)
== END | disposition home or self-care (01) ==
LOC: LAB 11:25 → LAB SHORT 11:25
PROVIDERS: Internal Medicine Hematology & Oncology
DX: C81.90 Hodgkin lymphoma, unspecified, unspecified site (principal)
CPT/HCPCS: 80053; 85025